=== PATIENT | female | born 1990 | race Two or more races ===

== ENCOUNTER 2016-07-05 20:29 | Emergency (ER) | payer MEDICAID ==
--- NOTE | ~2016-07-05 | ER ---
[facility] AGE: 26 Y [address] ROOM: [place] [address] LOCATION: [facility] ADMIT DATE: 07/05/2016 ER/Outpatient Report DISCHARGE DATE: 07/05/2016 FAMILY PHYSICIAN: PHYSICIAN, NO ATTENDING PHYSICIAN: Smooth Asencio Admission date and time are documented on the medical record. I saw the patient at 2050 hours. CHIEF COMPLAINT: Nasal congestion, cough, headache, nausea, and vomiting. HISTORY OF PRESENT ILLNESS: This patient is a 26-year-old female who is around 32-34 weeks gestation with her present . She has had a left-sided headache since Monday accompanied with some visual disturbance, nausea, and vomiting. She has nasal congestion, drainage, and an upper respiratory infection with nonproductive cough. She has had lot of sinus pressure. No earache, sore throat, neck, or spine pain. No chest pain or shortness of breath. No abdominal pain. Did vomit once. No diarrhea. No urinary complaints. No joint or muscle swelling, redness, or pain. No skin eruptions or rash. HOME MEDICATIONS: vitamins. She did try Robitussin orally and it caused her nausea and unable to take that medication. ALLERGIES: KEFLEX, PENICILLIN. SOCIAL HISTORY: Nonsmoker, nondrinker. SIGNIFICANT PAST MEDICAL HISTORY: Negative. OPERATIONS: None. PHYSICAL EXAMINATION: VITAL SIGNS: Temperature 98.3, tympanic, pulse 81, respirations 16, blood pressure 130/69, and O2 sat on room air is 97%. HEAD: Normocephalic. EYES: Clear. EARS: Clear TMs bilaterally. NOSE: Congested. PATIENT'S NAME: PÉREZ JOY [facility] AGE: 26 Y [address] ROOM: [place] [address] LOCATION: [facility] ADMIT DATE: 07/05/2016 ER/Outpatient Report DISCHARGE DATE: 07/05/2016 FAMILY PHYSICIAN: PHYSICIAN, NO ATTENDING PHYSICIAN: Smooth Asencio THROAT: Clear. Mucous membranes moist. NECK: Negative. SPINE: Negative. LUNGS: Clear. Good air flow. No rales, rhonchi, or wheezes. HEART: Regular. Pulses are palpable. ABDOMEN: Gravid, nontender. EXTREMITIES: Without peripheral edema, cyanosis, or deformity. NEUROVASCULAR: Intact. SKIN: Clear. No skin eruptions or rash. IMPRESSION: 1. Upper respiratory infection with congestion, cough, and posterior nasal drainage. 2. Left-sided headache. 3. Intrauterine about 35 weeks gestation. PLAN: The patient was given Nubain 10 mg, Phenergan 50 mg IM in the emergency room. Discharged home. Observation. Activity as tolerated. Rest. Continue present home medications and care. Zofran ODT as needed for nausea, vomiting. Sudafed 60 mg 4 times a day for nasal congestion, drainage. Warm moist packs to sinuses intermittently as needed. Follow up with personal physician tomorrow. MD LISANDRO ARCHER/modl /[id number] d: 07/06/16 0035 t: 07/06/16 1825, OUTPATIENT REPORT
[~2016-07-05 20:29] MED LIST: PRENATAL 1+1)(P1 TAB PO
== END 2016-07-05 21:24 | disposition disaster alternative care site (69) ==
LOC: GMED 20:29
DX: O99.513 Diseases of the respiratory system complicating pregnancy, third trimester (principal); J06.9 Acute upper respiratory infection, unspecified; Z3A.35 35 weeks gestation of pregnancy; Z88.0 Allergy status to penicillin; Z88.1 Allergy status to other antibiotic agents
CPT/HCPCS: J2300; J2550

== ENCOUNTER 2016-07-10 21:24 | Emergency (ER) | payer MEDICAID ==
--- NOTE | ~2016-07-10 | ER ---
[facility] AGE: 26 Y [address] ROOM: [place] [address] LOCATION: ED ADMIT DATE: 07/10/2016 ER/Outpatient Report DISCHARGE DATE: FAMILY PHYSICIAN: PHYSICIAN, NO ATTENDING PHYSICIAN: Peyman Don Time of Arrival: 2133 hours. Time of Evaluation: 2137 hours. CHIEF COMPLAINT: Headache. HISTORY OF PRESENT ILLNESS: The patient is a 26-year-old female, who presents to the emergency department today with a chief complaint of headache. She reports this started about 10 days prior to arrival. She reports it has come and gone since then. The patient is 36 weeks' . She had nausea and vomiting x4 in the past 24 hours. Denies any fevers or chills. Does have some photophobia. Denies any neck discomfort. No mental status changes. The patient does have significant family history of migraines in the past, grandmother, and mother. She does have headaches, however, not quite like this one. She denies any thunderclap. It was not sudden in onset. The patient was seen and evaluated here on Monday and was given medicine and had resolution of the patient's headache, however, progressively came back starting on Monday and . PAST MEDICAL HISTORY: None. PAST SURGICAL HISTORY: None. SOCIAL HISTORY: The patient denies any tobacco, alcohol, or illicit drug use. ALLERGIES: KEFLEX AND PENICILLIN. MEDICATION: . PRIMARY CARE DOCTOR: Dr. Bonilla. REVIEW OF SYSTEMS: All systems are reviewed by myself and are negative with the exception of [facility] AGE: 26 Y [address] ROOM: [place] [address] LOCATION: ED ADMIT DATE: 07/10/2016 ER/Outpatient Report DISCHARGE DATE: FAMILY PHYSICIAN: PHYSICIAN, NO ATTENDING PHYSICIAN: Peyman Don those discussed in the HPI and past medical history. PHYSICAL EXAMINATION: VITAL SIGNS: Weight 78 kg, blood pressure 112/64, pulse 79, respiratory rate 18, temperature 97.1, oxygen saturation 97% on room air. GENERAL: The patient is a 26-year-old female, who appears stated age, in mild acute distress secondary to headache. HEENT: Normocephalic, atraumatic. Pupils are equal, round, and reactive to light and accommodation. Extraocular motions are intact. Nares are patent bilaterally. TMs are clear. Oropharynx is clear. NECK: Supple. There is no nuchal rigidity. CARDIOVASCULAR: Regular rate and rhythm. No murmurs, rubs, or gallops. LUNGS: Clear to auscultation bilaterally. No wheezes, rales, or rhonchi. ABDOMEN: Soft, is gravid, and no tenderness to palpation. MUSCULOSKELETAL: The patient moves all 4 extremities. NEUROLOGICAL: GCS 15. Alert and oriented x4. Cranial nerves 2 through 12 are intact. Normal finger to nose. Normal rapid hand movement. Equal java developer analyst strength bilaterally. Downward going toes. No clonus. 2/4 reflexes. SKIN: Warm and dry. There is no pretibial edema noted. LABORATORY DATA AND X-RAYS: Labs and x-rays are obtained. CBC is unremarkable. PTT and INR are normal. CMP is unremarkable. Alk phos is 150, ALT is normal. CT scan of the brain is obtained after discussion of the risks of radiation. The patient did wish to proceed, showed no acute process. Urinalysis shows 25 leukocyte esterase, 5 ketones, 4 urobilinogen, 2-5 wbc's, 2-5 epithelials. IMPRESSION: 1. Cephalgia, unclear etiology. 2. Initial visit. EMERGENCY DEPARTMENT COURSE: The patient was brought back to the examination room. Seen and evaluated by myself. An IV is established. The patient was given 2 L of normal saline. She was given 10 mg of Reglan IV, 50 mg of Benadryl IV, which has resulted some slight improvement in the patient's symptoms. She was given 10 mg Compazine, as well as 0.5 mg of Dilaudid IV with significant improvement in the patient's symptoms. She was given another liter of normal saline. The patient is feeling improved at this time. I have discussed results of the laboratory analysis with her and her mother who is at the bedside. She is wishing home at this time. I did discuss with her that if the headache does return, I would like her to follow up with Dr. Bonilla in 1 to 2 days. If she continues to have the headache and can not get into Dr. Bonilla, she is to come to the emergency department for further evaluation as she does not have a primary care at this time. I have discussed with her that she may need PATIENT'S NAME: PÉREZ JOY [facility] AGE: 26 Y [address] ROOM: [place] [address] LOCATION: [facility] ADMIT DATE: 07/10/2016 ER/Outpatient Report DISCHARGE DATE: FAMILY PHYSICIAN: PHYSICIAN, SG ATTENDING PHYSICIAN: Peyman Don further imaging if the headache continues. Certainly, it does not sound like she has history and physical consistent with subarachnoid as it is progressively worsened headache. DISPOSITION: The patient is discharged to home in good condition. DO FANY HOLLINGSWORTH/kingsleyl /[id number] d: 07/11/16 0152 t: 07/11/16 0307, OUTPATIENT REPORT
[2016-07-10 22:22] LABS: BASOPHIL % 0.3 %; EOSINOPHIL # 0.2 K/uL (0.0-0.5); HEMATOCRIT 38.1 % (33.0-46.0); IMMATURE GRANULOCYTE # 0.1 K/uL (0.0-0.3); IMMATURE GRANULOCYTE % 0.6 %; LYMPHOCYTE # 2.2 K/uL (0.8-4.0); MCH 32.6 pg (27.0-34.0); MCHC 34.1 gm/dL (32.0-36.5); MCV 95.5 fl (83.0-98.0); MONOCYTE # 0.5 K/uL (0.0-1.0); MONOCYTE % 4.9 %; MPV 10.6 fl (9.4-12.4); NEUTROPHIL % 70.2 %; NRBC % 0 /100WBC (0-0.00); PLATELET COUNT 161 K/uL (150-450); RBC 3.99 M/uL (3.50-5.00); RDW-CV 12.8 % (11.9-14.6)
[2016-07-10 22:32] LABS: INR - (THERAPEUTIC) 0.92 (0.92-1.07); PROTIME 9.6 SECONDS (9.8-11.4); PTT 30 SECONDS (25-32)
[2016-07-10 22:42] LABS: ALBUMIN 2.6 gm/dL (3.5-5.0); ALK PHOS 168 IU/L (33-138); ALT 21 IU/L (12-78); ANION GAP 9.8 (10.0-19.0); AST 17 IU/L (10-40); BLOOD UREA NITROGEN 6 mg/dL (6-24); CALCIUM 8.3 mg/dL (8.5-10.5); CHLORIDE 109 mMol/L (96-110); CO2 25 mMol/L (22-32); CREATININE 0.6 mg/dL (0.5-1.1); ESTIMATED GFR (MDRD EQUATION) > 60; POTASSIUM 3.8 mMol/L (3.7-5.1); SODIUM 140 mMol/L (135-145); TOTAL BILIRUBIN 0.3 mg/dL (0.0-1.5); TOTAL PROTEIN 6.5 g/dL (6.0-8.4)
[2016-07-10 23:48] LABS: BILIRUBIN URINE NEGATIVE (NEGATIVE); BLOOD URINE NEGATIVE /UL (NEGATIVE); GLUCOSE URINE NEGATIVE (NEGATIVE); KETONE URINE 5 mg/dL (NEGATIVE); LEUKOCYTES URINE 25 /UL (NEGATIVE); NITRITE URINE NEGATIVE (NEGATIVE); PROTEIN URINE NEGATIVE (NEGATIVE); UROBILINOGEN URINE 4 mg/dL (NORMAL)
[2016-07-10 23:49] LABS: COLOR URINE YELLOW (YELLOW); TURBIDITY URINE CLEAR (CLEAR)
[2016-07-10 23:58] LABS: BACTERIA URINE FEW (NEGATIVE); RBC URINE NEGATIVE #/HPF (NEGATIVE)
== END 2016-07-11 00:57 | disposition disaster alternative care site (69) ==
LOC: GMED 21:24
PROVIDERS: Emergency Medicine
DX: O99.89 Other specified diseases and conditions complicating pregnancy, childbirth and the puerperium (principal); R51 Headache; Z88.0 Allergy status to penicillin; Z88.8 Allergy status to other drugs, medicaments and biological substances
CPT/HCPCS: J0780; J1170; J1200; J2765; J7030

== ENCOUNTER 2016-08-02 09:52 | Inpatient (IN) | payer MEDICAID ==
[~2016-08-02] VITALS: Ht 160 cm; Wt 78.4 kg
--- NOTE | ~2016-08-02 | OR ---
[facility] AGE: 26 Y [address] ROOM: [place] [address] LOCATION: [facility] ADMIT DATE: 08/02/2016 OR/Procedure Report DISCHARGE DATE: FAMILY PHYSICIAN: PHYSICIAN, NO ATTENDING PHYSICIAN: Lesvia Bonilla SURGEON: Lesvia Bonilla MD UX ENGINEER: DATE OF PROCEDURE: 08/02/2016 PREOPERATIVE DIAGNOSES: 1. Intrauterine at 39 weeks and 1 day. 2. Active labor. 3. Group B strep positive. POSTOPERATIVE DIAGNOSES: 1. Intrauterine at 39 weeks and 1 day. 2. Active labor. 3. Group B strep positive. PROCEDURE: Spontaneous vaginal delivery. ESTIMATED BLOOD LOSS: 300 mL. ANESTHESIA: None. FINDINGS: Female , scores 9 and 9. Weight is pending. Clear amniotic fluid. Left labial laceration. Normal placenta with 3-vessel cord intact. INDICATIONS: This patient is a 26-year-old, G4, P3-0-0-3 female who presented to Labor and Delivery in active labor. She had an uncomplicated . She had an artificial rupture of membranes and progressed along a normal labor curve to complete. She had group B strep prophylaxis. She underwent expulsive efforts for 2 contractions. DESCRIPTION OF PROCEDURE: With expulsive effort, the head delivered over an intact perineum. The rest of the fetus delivered. The nose and mouth were bulb suctioned. The cord was clamped and cut. The infant was handed to awaiting team. Cord blood was drawn. The placenta delivered with manual traction. Cervix, vagina, and perineum were examined. There was a small left labial abrasion which required one suture and lidocaine was used for local anesthesia. COMPLICATIONS: None. CONDITION: Mom stable in room. Infant to nursery. [facility] AGE: 26 Y [address] ROOM: [place] [address] LOCATION: [facility] ADMIT DATE: 08/02/2016 OR/Procedure Report DISCHARGE DATE: FAMILY PHYSICIAN: , NO ATTENDING PHYSICIAN: Lesvia Bonilla MD KAM ARMSTRONG/modl /[id number] d: 08/02/16 2234 t: 08/09/16 1123, OPERATIVE SUMMARY
[2016-08-02 11:14] LABS: BASOPHIL % 0.3 %; EOSINOPHIL # 0.1 K/uL (0.0-0.5); EOSINOPHIL % 0.9 %; HEMATOCRIT 36.5 % (33.0-46.0); HEMOGLOBIN 12.2 g/dL (11.0-15.0); IMMATURE GRANULOCYTE % 0.3 %; LYMPHOCYTE # 1.5 K/uL (0.8-4.0); LYMPHOCYTE % 14.3 %; MCH 32.5 pg (27.0-34.0); MCHC 33.4 gm/dL (32.0-36.5); MCV 97.3 fl (83.0-98.0); MONOCYTE # 0.5 K/uL (0.0-1.0); MONOCYTE % 4.3 %; MPV 11.3 fl (9.4-12.4); NEUTROPHIL # (ANC) 8.4 K/uL (1.8-7.8); NEUTROPHIL % 79.9 %; NRBC % 0 /100WBC (0-0.00); PLATELET COUNT 136 K/uL (150-450); RBC 3.75 M/uL (3.50-5.00); RDW-CV 13.5 % (11.9-14.6); WBC 10.5 K/uL (4.0-11.0)
--- NOTE | 2016-08-02 16:57 | NUR ---
Last VS: T:98.6 P:60 R: 14 BP: 119/63 Pain ratin. Last pain med: Motrin & 1-Percocet Medicated at: 1530 Effective: Yes Breasts: , Nipples: Fundus:, , Lochia: , Epis/Perineum: , , Voiding well: Significant event: *.
[2016-08-03 04:26] LABS: BASOPHIL % 0.3 %; EOSINOPHIL # 0.1 K/uL (0.0-0.5); EOSINOPHIL % 1.2 %; HEMATOCRIT 35.8 % (33.0-46.0); IMMATURE GRANULOCYTE # 0.1 K/uL (0.0-0.3); IMMATURE GRANULOCYTE % 0.6 %; LYMPHOCYTE # 2.2 K/uL (0.8-4.0); LYMPHOCYTE % 21.6 %; MCH 32.8 pg (27.0-34.0); MCHC 33.5 gm/dL (32.0-36.5); MCV 97.8 fl (83.0-98.0); MONOCYTE # 0.6 K/uL (0.0-1.0); MONOCYTE % 5.6 %; MPV 10.8 fl (9.4-12.4); NEUTROPHIL # (ANC) 7.4 K/uL (1.8-7.8); NEUTROPHIL % 70.7 %; NRBC % 0 /100WBC (0-0.00); PLATELET COUNT 153 K/uL (150-450); RBC 3.66 M/uL (3.50-5.00); RDW-CV 13.7 % (11.9-14.6); WBC 10.4 K/uL (4.0-11.0)
--- NOTE | 2016-08-03 05:12 | NUR ---
VSS, fundus firm, 1 down, small flow, Motrin last at 0159, Percocet last at 2110, ambulates to NICU, pumped at 0210
--- NOTE | 2016-08-03 16:56 | NUR ---
Met patient while she was visiting baby Ramiro in the NICU. Introduced myself and explained my role with the CM department. Informed patient to contact Medicaid and get baby added to the policy and informed her she only has 30 days to do this. We also discussed community resources and she states she is not needing these at this time. She is not connected with [place] and does not plan to use them. I encouraged her to look into the WIC programming. I also discussed signs and symptoms of post depression with patient and encouraged her to contact her doctor if she experiences any of these for more than 48 hours. Informed her that she can room in with baby if she is going to have to stay for a longer period of time or she can come and go between home since she lives here in town. Patient denies any needs at this time. Will continue to follow while she and baby are here.
--- NOTE | 2016-08-03 17:34 | NUR ---
121/67/89 63 98.3 18 FUNDUS FIRM SMALL FLOW, MOTRIN LAST @ 1050, PERCOCET 1 TAB LAST @ 1530, TOOK A BATH THIS AM, SHEETS CHANGED, SALINE LOCK OUT, SPENDS MOST HER TIME IN NICU WITH BABY, INDEPENDENT WITH CARES.
[2016-08-04] MEDS ORDERED: DERMOPLAST SPRA56 GM TOP (13:51)
[2016-08-04] MEDS ORDERED: MOTRIN800 MG PO (13:51)
[2016-08-04] MEDS ORDERED: APNO TOP (13:51)
[2016-08-04] MEDS ORDERED: PERCOCET 5-3251 EACH PO (13:52)
== END 2016-08-04 17:55 | disposition disaster alternative care site (69) | DRG 775 ==
LOC: GOBM 09:52 → GOBS 09:52 → GOBM 09:53 → GOBS 10:29 → GOBM 08-08 16:12
PROVIDERS: ADMIT Obstetrics & Gynecology
PROC: 10907ZC Drainage of Amniotic Fluid, Therapeutic from Products of Conception, Via Natural or Artificial Opening (ICD-10-PCS; principal; 2016-08-02)
PROC: 0UQMXZZ Repair Vulva, External Approach (ICD-10-PCS; principal; 2016-08-02)
PROC: 10E0XZZ Delivery of Products of Conception, External Approach (ICD-10-PCS; principal; 2016-08-02)
DX: O71.82 Other specified trauma to perineum and vulva (principal); O99.824 Streptococcus B carrier state complicating childbirth; Z3A.39 39 weeks gestation of pregnancy; Z37.0 Single live birth
CPT/HCPCS: J2590; J3010; J7120